=== PATIENT | female | born 1970 | race Caucasian/White ===

== ENCOUNTER 2023-12-07 15:55 | Emergency (ER) | payer OTHER, SELFPAY ==
[2023-12-07 16:07] VITALS: BP 145/96
[2023-12-07] MEDS: MORPHINE SULFATE 4 MG IV (17:22)
[2023-12-07] MEDS: ZOFRAN 4 MG IV (17:22)
[2023-12-07 19:00] VITALS: BP 135/86
[2023-12-07] MEDS: DILAUDID 0.5 MG IV ×2 (19:01→21:31)
[2023-12-07 19:11] VITALS: BMI 37.9
[2023-12-07 20:30] VITALS: BP 123/81
--- NOTE | 2023-12-07 21:17 | ED.MUSCINJ ---
HPI-Injury
General
Chief Complaint: Musculo-Skeletal Complaint
Source: patient
Exam Limitations: none
Time Seen by Provider: 12/07/23 18:01
Travel History
Have you had any contact with someone who has COVID-19?: No
Do you have any symptoms of coronavirus? Fever > 100 degrees, chills, cough, shortness of breath, sore throat, loss of taste or smell, muscle aches, or headache?: No
History of Present Illness-Injury
Initial Injury comments:
53-year-old female presents complaining of left ankle pain after trip and fall. She notes swelling. No other injury. No other complaints at this time
Past History
Past History
ED Past Medical History: Hypothyroidism
ED Past Surgical History: Tonsilectomy
Social History
Tobacco: Non-smoker
Alcohol: None
Drug: None
Personal:
Living: with family
Phy Exam
Physical Exam
Physical Exam:
General: Uncomfortable appearing female no acute respiratory distress
HEENT: Normocephalic atraumatic
Musculoskeletal exam: Left ankle swollen ecchymotic and tender diffusely. The left knee is nontender the foot is nontender
Vascular: 2+ dorsalis pedis pulse left foot
Neurologic: Good sensation left foot
Injury Course
Orders/Labs/Results
Orders:
Orders
12/07/23 16:10
Ankle, left 3 view CR [CR Ankle - Left Min 3 Views ] Urgent
Comment:
Reason For Exam: swelling and pain after a fall
12/07/23 17:19
Morphine Sulfate 4 mg IV NOW STA
Ondansetron Injectable [Zofran] 4 mg IV NOW STA
12/07/23 18:51
CT Lower Ext W/o Iv Cont Lt Urgent
Comment:
Reason For Exam: ankle fracture
HYDROmorphone [Dilaudid] 0.5 mg IV NOW STA
MDM/Problems Addressed
Differential Diagnosis Includes:
Left ankle pain after mechanical fall. Consider fracture versus dislocation versus both
I personally visualized x-rays of the left ankle which demonstrate a distal tibial fracture with associated with a comminuted distal fibular fracture with lateral displacement of the talus.
Discussed findings with orthopedics. They recommended splint application including posterior and a U. They also recommended getting a CT after the splint was applied. Patient was splinted using cast padding 3 inch OCL and Nasim bandage in that
fashion. She was neurovascular intact after the splint was applied. CT was performed. Patient given crutches and discussed with patient and significant other treatment options otherwise. They are comfortable going home with close follow-up.
*Critical Care Note
Total Time (30-74mins, 75-104mins- exclusive of procedures): Not Applicable
ED Attending Note
-
Portions of this chart may have been created with voice recognition software.� Occasional wrong word or��sound alike� substitutions may have occurred due to the inherent limitations of voice recognition software.
Discharge Plan
Departure
Patient Disposition: Home (Routine Discharge)
Date of Disposition: 12/07/23
Time of Disposition: 21:17
Patient with high blood pressure during this ER visit?: No
Discharge Problem:
Ankle fracture
Instructions: Muscle and Bone Pain (DC), Splint Care
Prescriptions:
New
oxycodone-acetaminophen [Percocet] 5-325 mg tablet
1 tab PO ONCE PRN (Reason: Pain) Qty: 2 0RF
oxycodone-acetaminophen [Percocet] 5-325 mg tablet
1 tab PO Q4HPRN PRN (Reason: pain) Qty: 10 0RF
No Action
levothyroxine 50 MCG tablet
50 mcg PO DAILY
rosuvastatin 10 mg Tablet
10 mg PO DAILY
Referrals:
Vivek Melendez MD [Active] -
UNKNOWN - PT DOES,NOT KNOW [Family Provider] -
Activity Restrictions/Additional Instructions:
Keep elevated. You may use ibuprofen for pain and prescribed pain medicine for severe pain. Please follow-up with orthopedics for next available appointment. Return if needed otherwise. Do not bear weight on left leg. Use crutches
Interventions
Interventions:
*Risk Screen - Suicide Last Done: 12/07/23 16:52
*General Assessment Last Done: 12/07/23 16:52
*Neglect/Abuse Screening Last Done: 12/07/23 16:52
ED- Fall Risk Assessment Last Done: 12/07/23 16:52
*ED COVID-19 Vaccine History Last Done: 12/07/23 16:52
ED-Musculoskeletal Assessment Last Done: 12/07/23 19:10
Discharge Date and Time
Print Language: DIVEHI
[2023-12-07 21:30] VITALS: BP 122/77
[2023-12-07 22:00] VITALS: BP 116/84
--- NOTE | 2023-12-07 22:23 | EDRN ---
Pt given crutches earlier by EDT. Pt has no further questions regarding crutch usage. [place] [facility] gave pt two 'to go' percocet and had pt sign form which was tubed back to pharmacy. New ice pack with fresh ice provided to pt.
== END 2023-12-07 22:28 | disposition home or self-care (01) ==
LOC: EMR 15:55
PROVIDERS: EMERGENCY PHYSICIAN Student in an Organized Health Care Education/Training Program
DX: S82.52XA Displaced fracture of medial malleolus of left tibia, initial encounter for closed fracture (principal); S90.02XA Contusion of left ankle, initial encounter; W01.0XXA Fall on same level from slipping, tripping and stumbling without subsequent striking against object, initial encounter; E03.9 Hypothyroidism, unspecified
CPT/HCPCS: 99284; 96374; 29515; 96375 ×2; 96376; 73610; 73700

== ENCOUNTER → 2024-04-01 06:58 | Outpatient (REF) | payer OTHER, SELFPAY | LOC: WDC 06:58 | PROVIDERS: ATTENDING PHYSICIAN Nurse Practitioner Family | DX: Z12.31 Encounter for screening mammogram for malignant neoplasm of breast (principal) | CPT/HCPCS: 77063; 77067 ==

== ENCOUNTER → 2025-04-04 07:53 | Outpatient (REF) | payer OTHER, SELFPAY | LOC: WDC 07:53 | PROVIDERS: ATTENDING PHYSICIAN Obstetrics & Gynecology Gynecology; FAMILY PHYSICIAN Internal Medicine | DX: Z12.31 Encounter for screening mammogram for malignant neoplasm of breast (principal); Z12.39 Encounter for other screening for malignant neoplasm of breast | CPT/HCPCS: 77063; 77067 ==